=== PATIENT | female | born 1995 | race Caucasian/White ===

== ENCOUNTER 2024-08-31 13:23 | Outpatient (CLI) | payer MEDICAID, SELFPAY ==
[2024-08-31] VITALS (12 sets, daily range): BP systolic 130–159; BP diastolic 69–96; PULSE 100–112; BMI 45.9
[2024-08-31] MEDS: LABETALOL 100 MG TABLET 200 MG PO (14:13)
--- NOTE | 2024-08-31 14:46 | PC.CC ---
1446-Spoke to Bree at [facility] about transfer for patient, phone call transferred to OB charge nurse Patricai for further patient clinicals, charge nurse then took over transfer, HS available to assist. 1515- spoke to charge nurse Patricia and asked if Dr. Alegria wanted a stroke alert initiated and this rn heard Dr. Isabel say no because the patient was being transferred and we do not have neurology or MRI and the patient was already being transferred
--- NOTE | 2024-08-31 14:47 | ESHP_ITS ---
Documentation for date of: 08/31/24 OB Labor/Induct. HPI History of Present Illness : 5 Term pregnancies: 4 pregnancies: 0 Living children: 4 History of Abortions: Spontaneous and Elective: 0 History of sections: No History of : No Gestational Age (weeks): 32 Gestational Age (days): 4 History of present illness: 29-year-old G5, P4 who comes at 32 weeks and 4 days after having an episode of right arm paresthesia, slurred speech and blurry vision for about 10 minutes at 1130 this morning which self resolved. Patient denies family history of similar episodes Her is remarkable for di/di twin with FGR one of the fetuses. Morbid obesity and chronic hypertension on aspirin, gestational diabetes A2 on insulin. Patient states having been induced for all of her pregnancies at 37 weeks due to gestational hypertension, all deliveries were Currently she denies any of the symptoms mentioned above. She also denies headache, blurry vision, right upper quadrant or epigastric pain Review of Systems Allergic/Immunologic Comments: Denies Past Medical History Surgical History SURGICAL: Negative Section Past Medical History Comments PMH COMMENT: GDMA2. Chronic hypertension not on meds. Morbid obesity Meds Home Medications and Allergies Home Medications ?Medication ?Instructions ?Recorded ?Confirmed ?Type labetalol 100 mg tablet 100 mg PO BID 03/18/19 11/18/22 History vitamins-iron fumarate 27 1 tab PO QDAY 03/18/19 11/18/22 History mg iron-folic acid 0.8 mg tablet ( Vitamin) Allergies Allergy/AdvReac Type Severity Reaction Status Date / Time No Known Allergies Allergy Unknown Verified 11/18/22 19:37 OB Exam Physical Exam Vital signs: Pulse BP 102 H 143/82 H 08/31/24 14:25 08/31/24 14:25 Detailed Labor and Delivery Exam Contraction frequency (min): 0 OB Results Impressions Impression: 29-year-old G5, P4 at 32 weeks and 4 days. Di/di twin with FGR Morbid obesity and chronic hypertension on aspirin GDMA2 on insulin Suspected TIA, currently denies neurologic symptoms OB Assessment & Plan Additional Plan Additional Plan Comment: Plan was initially to have neurological evaluation along with brain MRI and preeclampsia evaluation as well. However neurology and MRI are not available today to perform evaluation. Given these findings [facility] on-call was contacted and agree on transferring the patient for neurological evaluation. Will start magnesium sulfate for seizure prophylaxis along with Celestone for lung maturation Preeclampsia labs still pending
[2024-08-31] MEDS: MAGNESIUM SULF 20 GM IVPB 20 GM/500 ML BAG IV ×2 (14:48→15:22)
[2024-08-31] MEDS: Magnesium Sulfate 4 GM Ivpb 4 GM/50 ML BAG IV (14:48)
[2024-08-31 14:54] LABS: Collection Type, Urine Clean Catch
[2024-08-31 15:01] LABS: Bacteria,Urine Rare; Basophils % (Auto) 0 % (0-2.5); Bilirubin,Urine Negative (Negative); Blood,Urine Negative (Negative); Clarity,Urine Clear (Clear/Hazy); Color,Urine Yellow (Lt Yel-Yel); Eosinophils # (Auto) 0.1 Thou/mm3 (0.0-0.5); Eosinophils % (Auto) 1 % (0-10); Glucose, Urine Negative (Negative); Hematocrit 33.9 % (36.0-46.0); Hemoglobin 11.6 g/dL (12.0-16.0); Immature Granulocytes % (Auto) 2 % (0-0); Ketones,Urine Trace (Negative); Leukocyte Esterase,Urine Positive (Negative); Lymphocytes # (Auto) 1.9 Thou/mm3 (1.0-4.8); Lymphocytes % (Auto) 15 % (10-50); Mean Corpuscular HGB Conc 34.2 g/dl (31.0-37.0); Mean Corpuscular Hemoglobin 27.7 pg (25.0-35.0); Mean Corpuscular Volume 81 fL (80-100); Monocytes # (Auto) 0.8 Thou/mm3 (0.0-0.8); Monocytes % (Auto) 6 % (0-12); Neutrophils # (Auto) 9.9 Thou/mm3 (1.8-7.7); Neutrophils % (Auto) 77 % (37-80); Nitrite,Urine Negative (Negative); Nucleated Red Blood Cell % 0 /100 WBC (0); PH,Urine 6.5 (5.0-7.0); Platelet Count 270 Thou/mm3 (140-440); Protein,Urine 1+ (Neg - Trace); RBC,Urine 3 /hpf (0-3); RDW Standard Deviation 43.4 fL (36.4-46.3); Red Blood Count 4.19 Miln/mm3 (4.00-5.20); Specific Gravity,Urine 1.017 (1.001-1.035); Squamous Epithelial Cell,Urine 9 /hpf (0-5); Urobilinogen,Urine Negative mg/dL (0.0-1.0); WBC,Urine 2 /hpf (0-5); White Blood Count 12.9 Thou/mm3 (3.6-11.0)
[2024-08-31] MEDS: BETAMET ACET/BETAMET NA PH (Celestone) 6 MG/ML VIAL 12 MG IM (15:03)
[2024-08-31 15:20] LABS: Fibrinogen 574 mg/dL (175-375); Partial Thromboplastin Time 26.7 Seconds (22.0-36.0); Prothrombin Time 10.8 Seconds (9.0-12.2)
[2024-08-31 15:30] LABS: Alanine Aminotransferase 9 U/L (10-49); Albumin, Serum 4.4 gm/dL (3.5-5.0); Albumin/Globulin Ratio 1.8 (1.2-2.2); Alkaline Phosphatase 106 U/L (46-116); Anion Gap 8 (7-16); Aspartate Amino Transferase < 10 U/L (0-34); BUN/Creatinine Ratio 10 Ratio (12-20); Bilirubin,Total 0.7 mg/dL (0.3-1.2); Blood Urea Nitrogen < 5 mg/dL (9-23); Calcium 9.5 mg/dL (8.3-10.6); Calcium (Corrected) 9.5 mg/dL (8.5-10.1); Carbon Dioxide 20.9 mMol/L (20.0-31.0); Chloride 106 mMol/L (98-107); Creatinine (Component) 0.5 mg/dL (0.6-1.3); Estimated Creatinine Clearance 246.3 mL/min (>60); Globulin 2.5 gm/dL (2.3-3.5); Glucose 104 mg/dL (74-106); LDH (Lactate Dehydrogenase) 157 U/L (120-246); Osmolality,Calculated 267 (275-295); Potassium 3.9 mMol/L (3.4-5.1); Sodium 135 mMol/L (136-145); Total Protein 6.9 gm/dL (5.7-8.2); Uric Acid 3.6 mg/dL (3.1-7.8); eGFR > 60 See Note
--- NOTE | 2024-08-31 19:13 | PC.NURSE ---
Called to lab. Spoke with jam about sending drug tox for pt. pt has been transfered but urine is being taken down now for testing. Asking if okay to discharge encounter and urine sample will still be run. per jam, spoke with her manager demand and yes aslong as they received the test drug tox will still be tested.
[2024-08-31 21:30] LABS: Amphetamine/Metham Scrn,Ur OB Negative (Negative); Benzoylecgonine Screen, Ur OB Negative (Negative); Opiate Screen,Urine OB Negative (Negative); THC Screen,Urine OB Negative (Negative)
== END 2024-08-31 17:21 | disposition home or self-care (01) ==
LOC: S4S1 13:24 → S4SX 13:25
PROVIDERS: Referring Provider Obstetrics & Gynecology; Visit Provider Obstetrics & Gynecology
DX: O24.414 Gestational diabetes mellitus in pregnancy, insulin controlled (principal); O16.3 Unspecified maternal hypertension, third trimester; O30.043 Twin pregnancy, dichorionic/diamniotic, third trimester; O99.213 Obesity complicating pregnancy, third trimester; E66.01 Morbid (severe) obesity due to excess calories; Z3A.32 32 weeks gestation of pregnancy
CPT/HCPCS: 36415; 59025; 80053; 80307; 81001; 83615; 83735; 84550; 85025; 85384; 85610; 85730; 96365; 96372; J0702; J3475; A9270

== ENCOUNTER 2024-09-22 14:39 | Outpatient (RCR) | payer MEDICAID, SELFPAY ==
[2024-08-28 15:20] VITALS: BP 132/84; PULSE 98; RESP 16; TEMP 36.8
[2024-09-04 14:49] VITALS: BP 136/73; PULSE 97; RESP 16
[2024-09-08 15:09] VITALS: BP 143/85; PULSE 96; RESP 16; TEMP 36.7
[2024-09-15 14:46] VITALS: BP 132/78; PULSE 97; RESP 16; TEMP 37
[2024-09-18 14:52] VITALS: BP 140/80; PULSE 86; RESP 16
[2024-09-22 15:43] VITALS: BP 136/77; PULSE 84; RESP 16
== END 2024-09-22 23:59 | disposition home or self-care (01) ==
LOC: S4S1 14:39
PROVIDERS: Referring Provider Specialist; Visit Provider Specialist
DX: O24.419 Gestational diabetes mellitus in pregnancy, unspecified control (principal); O36.5932 Maternal care for other known or suspected poor fetal growth, third trimester, fetus 2; O30.043 Twin pregnancy, dichorionic/diamniotic, third trimester; O10.913 Unspecified pre-existing hypertension complicating pregnancy, third trimester; Z3A.35 35 weeks gestation of pregnancy
CPT/HCPCS: 59025; 80053; 85025; 85610; 85730; 86780; 86850; 86900; 86901

== ENCOUNTER 2024-09-24 05:21 | Inpatient (IN) | payer MEDICAID, SELFPAY ==
--- NOTE | 2024-09-20 09:16 | ESHP_ITS ---
RE: MELL LOWE : 1995 DATE OF ADMISSION: 09/24/2024 HISTORY OF PRESENT ILLNESS: This is a 29-year-old gravity 5, para 4-0-0-4 with a due date of 10/22/2024 with intrauterine at 36 weeks' gestation, who presents for primary delivery due to malpresentation, twin gestation with chronic hypertension and superimposed preeclampsia without severe features and well-controlled gestational diabetes mellitus, class A2. She is also multiparous and desires voluntary sterilization. She has a dichorionic diamniotic twin gestation and has had serial ultrasounds throughout her with maternal medicine. The most recent ultrasound shows that both babies have concordant growth with twin A at the 62nd percentile and twin B at the 22nd percentile. There was a period of time in the where it appeared that twin B was lagging in growth and she was undergoing serial biophysical profiles and uterine artery Dopplers; however, twin B has demonstrated adequate interval growth on the most recent ultrasound on 09/09/2024. The patient was admitted to [facility] on 08/31/2024 for a change in mental status. At the time, she underwent an MRI and an EEG, which were negative. She underwent a 24-hour urine collection, which showed 501 mg of protein over 24 hours. She has had serial PIH blood work, which has been within the normal limits. She reports normal movements. She denies any leaking or bleeding. She denies any headache, change in vision or right upper quadrant pain. She denies any chest pain, palpitations, shortness of breath, or lower extremity pain. ALLERGIES: NO KNOWN DRUG ALLERGIES. MEDICATIONS: 1. Humulin NPH 26 units before breakfast, 16 units at bedtime 2. Humalog 12 units before breakfast, 12 units with dinner 3. multivitamin one p.o. daily 4. Aspirin 162 mg one p.o. daily 5. Ferrous sulfate 325 mg one p.o. b.i.d. 6. Penicillin 500 mg one p.o. q. 6 hours. PAST MEDICAL HISTORY: Group B strep urinary tract infection on 09/17/2024, chronic hypertension, anxiety, depression, iron deficiency anemia, obesity, migraine headaches, GDMA2. PAST SURGICAL HISTORY: Tonsillectomy. FAMILY HISTORY: Mother has depression, anxiety, hypertension, heart disease. Maternal grandmother has migraine headaches, depression, anxiety, diabetes, hypertension. OBSTETRIC HISTORY: Four previous full-term normal vaginal deliveries. REVIEW OF SYSTEMS: As above. PHYSICAL EXAMINATION: VITAL SIGNS: Blood pressure 143/97, heart rate 88, respirations 18, temperature 98.6, weight 304 pounds. HEENT: Oropharynx and sclerae are clear. LUNGS: Clear to auscultation bilaterally. HEART: Regular rate and rhythm. ABDOMEN: Gravid with fundus at 46 cm. PELVIC: Deferred. EXTREMITIES: Nontender. SKIN: No gross rashes or lesions NEUROLOGIC: No focal deficits. ASSESSMENT: Intrauterine at 36 weeks; dichorionic diamniotic twin gestation; malpresentation; chronic hypertension with superimposed preeclampsia without severe features; gestational diabetes mellitus, class A2, well controlled; multiparity; desires voluntary sterilization; PLAN: delivery and bilateral tubal ligation. Informed consent was obtained. The patient made aware of the risks, complications, alternatives, and benefits of the proposed procedure and she agrees. DT: 07:18:51 TT: 09:00:00 Ref: [id number] - TID: [id number] MTDCharlie
[2024-09-22 16:46] LABS: Basophils % (Auto) 0 % (0-2.5); Eosinophils # (Auto) 0.1 Thou/mm3 (0.0-0.5); Eosinophils % (Auto) 1 % (0-10); Hematocrit 33.2 % (36.0-46.0); Hemoglobin 10.9 g/dL (12.0-16.0); Immature Granulocytes % (Auto) 1 % (0-0); Immature Granulocytes Auto 0.09 Thou/mm3 (0.00-0.00); Lymphocytes # (Auto) 1.8 Thou/mm3 (1.0-4.8); Lymphocytes % (Auto) 16 % (10-50); Mean Corpuscular HGB Conc 32.8 g/dl (31.0-37.0); Mean Corpuscular Hemoglobin 26.7 pg (25.0-35.0); Mean Corpuscular Volume 81 fL (80-100); Monocytes # (Auto) 0.8 Thou/mm3 (0.0-0.8); Monocytes % (Auto) 7 % (0-12); Neutrophils # (Auto) 8.7 Thou/mm3 (1.8-7.7); Neutrophils % (Auto) 76 % (37-80); Nucleated Red Blood Cell % 0 /100 WBC (0); Platelet Count 261 Thou/mm3 (140-440); RDW Standard Deviation 43.8 fL (36.4-46.3); Red Blood Count 4.09 Miln/mm3 (4.00-5.20); White Blood Count 11.5 Thou/mm3 (3.6-11.0)
[2024-09-22 16:50] LABS: INR 0.9 (0.9-1.3); Partial Thromboplastin Time 25.6 Seconds (22.0-36.0); Prothrombin Time 10.3 Seconds (9.0-12.2)
[2024-09-22 17:12] LABS: Syphilis Nonreactive (Nonreactive)
[2024-09-22 17:16] LABS: Alanine Aminotransferase < 7 U/L (10-49); Alkaline Phosphatase 144 U/L (46-116); Anion Gap 10 (7-16); Aspartate Amino Transferase < 8 U/L (0-34); BUN/Creatinine Ratio 12 Ratio (12-20); Bilirubin,Total 0.5 mg/dL (0.3-1.2); Blood Urea Nitrogen 7 mg/dL (9-23); Calcium 9.6 mg/dL (8.3-10.6); Calcium (Corrected) 9.6 mg/dL (8.5-10.1); Carbon Dioxide 21.1 mMol/L (20.0-31.0); Chloride 106 mMol/L (98-107); Creatinine (Component) 0.6 mg/dL (0.6-1.3); Glucose 101 mg/dL (74-106); Osmolality,Calculated 271 (275-295); Potassium 3.9 mMol/L (3.4-5.1); Sodium 137 mMol/L (136-145); eGFR > 60 See Note
[2024-09-24] VITALS (14 sets, daily range): BP systolic 114–131; BP diastolic 70–83; PULSE 68–79; RESP 16–22; TEMP 36.5–37; O2SAT 94–98; BMI 47.0
[2024-09-24] MEDS: RINGERS LACTATED 1000 ML 1,000 ML 100 ML IV ×2 (06:09→20:20)
[2024-09-24] MEDS: CITRIC ACID/SODIUM CITR 15 ML UDC (BICITRA) 30 ML PO (07:34)
[2024-09-24] MEDS: ceFAZolin/D5W 2 GM IV 2 GM/100 ML BAG IV (07:36)
[2024-09-24] MEDS: FAMOTIDINE INJ 10 MG/ML VIAL 2 ML 20 MG IV (07:36)
[2024-09-24 08:37] LABS: Collection Type, Urine Clean Catch
[2024-09-24 08:48] LABS: Bilirubin,Urine Negative (Negative); Blood,Urine Negative (Negative); Clarity,Urine Clear (Clear/Hazy); Color,Urine Yellow (Lt Yel-Yel); Glucose, Urine Negative (Negative); Ketones,Urine Negative (Negative); Leukocyte Esterase,Urine Negative (Negative); Nitrite,Urine Negative (Negative); PH,Urine 6.5 (5.0-7.0); Protein,Urine 1+ (Neg - Trace); RBC,Urine 2 /hpf (0-3); Specific Gravity,Urine 1.019 (1.001-1.035); Squamous Epithelial Cell,Urine 11 /hpf (0-5); Urobilinogen,Urine Negative mg/dL (0.0-1.0); WBC,Urine 2 /hpf (0-5)
--- NOTE | 2024-09-24 08:59 | ESDS_ITS ---
DS: Providers Provider Date of admission: 09/24/24 05:21 Primary care physician: Chi Crowe MD Admitting Provider: Marcello Jasso MD Attending Provider on Admission: Marcello Jasso MD Attending Provider on DC: Marcello Jasso MD Discharging Provider: Marcello Jasso MD DS: Diagnosis Problem List Completed Was Problem List Reviewed/Reconciled?: Yes Summary/Hosp Course Peripartum Data Procedures: Procedures Operation Date: 09/24/24 07:45 <No data on this case meets the specified criteria> Time Spent with Patient Time attestation: Total time spent providing and/or coordinating discharge services: Exam Vital Signs Temp 97.7 F 09/24/24 05:28 Discharge Plan Plan Patient Disposition: HOME (Self Care) Patient condition on transfer: Stable Prescriptions/Referrals Prescriptions/Med Rec: New ibuprofen 600 mg tablet 600 mg PO Q6H PRN (Reason: pain) Qty: 30 0RF Continued Vitamin 27 mg iron- 0.8 mg Tablet 1 tab PO QDAY Discontinued ferrous sulfate 325 mg (65 mg iron) tablet,delayed release (DR/EC) 325 mg PO BID Qty: 60 0RF insulin NPH and regular human 100 unit/mL (50-50) Suspension 26 ml SUBCUT ACBR insulin NPH and regular human 100 unit/mL (50-50) Suspension 8 ml SUBCUT HS insulin lispro [Humalog U-100 Insulin] 100 unit/mL Solution 12 unit SUBCUT ACBR insulin lispro [Humalog U-100 Insulin] 100 unit/mL Solution 12 unit SUBCUT ONCE PM Referrals: Chi Crowe MD [Primary Care Provider] - Patient/Caregiver Discharge Instructions Discharge Activity: activity as tolerated Other Discharge Activity Instructions:: Follow up office 1 week. Education Materials: C Section Dc Print Language: Slovenian Stand Alone Forms: [facility]ez Award Info., Patient Portal Info Letter Discharge Order Discharge Orders: Discharge (Routine); Ordered 09/26/24 Ordered By: Marcello Jasso Planned Discharge Date 09/26/24
[2024-09-24 09:01] LABS: Partial Thromboplastin Time 26.3 Seconds (22.0-36.0); Prothrombin Time 10.5 Seconds (9.0-12.2)
[2024-09-24 09:23] LABS: Alanine Aminotransferase 8 U/L (10-49); Albumin, Serum 4.1 gm/dL (3.5-5.0); Albumin/Globulin Ratio 1.9 (1.2-2.2); Alkaline Phosphatase 140 U/L (46-116); Anion Gap 11 (7-16); Aspartate Amino Transferase < 8 U/L (0-34); BUN/Creatinine Ratio 15 Ratio (12-20); Bilirubin,Total 0.5 mg/dL (0.3-1.2); Blood Urea Nitrogen 6 mg/dL (9-23); Calcium 9.3 mg/dL (8.3-10.6); Calcium (Corrected) 9.3 mg/dL (8.5-10.1); Carbon Dioxide 19.3 mMol/L (20.0-31.0); Chloride 108 mMol/L (98-107); Creatinine (Component) 0.4 mg/dL (0.6-1.3); Estimated Creatinine Clearance 463.3 mL/min (>60); Globulin 2.2 gm/dL (2.3-3.5); Glucose 115 mg/dL (74-106); Osmolality,Calculated 274 (275-295); Potassium 3.6 mMol/L (3.4-5.1); Sodium 138 mMol/L (136-145); Total Protein 6.3 gm/dL (5.7-8.2); Uric Acid 3.9 mg/dL (3.1-7.8); eGFR > 60 See Note
[2024-09-24 10:12] LABS: Fibrinogen 608 mg/dL (175-375)
[2024-09-24] MEDS: OXYTOCIN in NS 20 units 20 UNIT/1,000 ML BAG 125 UNIT IV (11:36)
[2024-09-24] MEDS: PROMETHAZINE INJ 25 MG in SODIUM CHLORIDE 0.9% 50 ML IV (11:38)
--- NOTE | 2024-09-24 12:28 | ESOP_ITS ---
RE: MELL LOWE : 1995 DATE OF OPERATION: 09/24/2024 PREOPERATIVE DIAGNOSES: 1. Intrauterine at 36 weeks. 2. Dichorionic, diamniotic twin gestation. 3. Preeclampsia without severe features. 4. Gestational diabetes mellitus class A2, well controlled. 5. Multiparity, desires voluntary sterilization. 6. Malpresentation. POSTOPERATIVE DIAGNOSES: 1. Intrauterine at 36 weeks. 2. Dichorionic, diamniotic twin gestation. 3. Preeclampsia without severe features. 4. Gestational diabetes mellitus class A2, well controlled. 5. Multiparity desires voluntary sterilization. 6. Malpresentation. PROCEDURE PERFORMED: A primary classical delivery via Pfannenstiel skin incision and and bilateral salpingectomy. SURGEON: Marcello Jasso DO CLAIM APPROVER: ZAHRA Benitez ANESTHESIA: Spinal. ANESTHESIOLOGIST: David Blanco CRNA ESTIMATED BLOOD LOSS: 600 mL. COMPLICATIONS: None. COUNTS: Correct. PATHOLOGY: 1. Placenta. 2. Bilateral fallopian tubes. FINDINGS: Twin A cathy breech presentation, clear amniotic fluid, Apgars see RN notes. Twin B, footling breech presentation, clear amniotic fluid, Apgars see RN notes, dichorionic diamniotic, placenta removed complete and intact with umbilical cord clamp on twin B. Uterus and ovaries and fallopian tubes grossly within normal limits. DESCRIPTION OF PROCEDURE: After proper informed consent was obtained and the patient made aware of the risks, complications, alternatives, benefits of the proposed procedure, she was taken to the operating room where she underwent induction of spinal anesthesia. She was placed in the dorsal supine position. She was prepped and draped in the usual sterile fashion. A time-out was performed. A Pfannenstiel skin incision was made with the scalpel, carried through to the underlying layer of fascia with the Bovie. The fascia was nicked to the midline. The incision extended bilaterally with the Bovie. The inferior aspect of the fascial incision was grasped with Ramos clamps and elevated. The underlying rectus muscle was dissected off with the Bovie. The rectus muscles were at the midline. The perineum identified between 2 Soto clamps and entered sharply with the Metzenbaum scissors. The incision was extended superiorly and inferiorly. The bladder blade was then inserted. The classical midline vertical incision was made in the lower uterine segment. The amniotic sac for twin A was ruptured with the pickups with teeth. The cathy breech presentation presented to the incision and the baby was gently guided through the incision atraumatically. The anterior and posterior shoulder delivered and the head kept in the flexed position. Delayed cord clamping was performed for a total of 30 to 60 seconds. The cord was clamped. The infant sent off to waiting pediatric staff. The cord was held with a Agueda clamp. Attention was then turned to the amniotic sac for twin B, which was ruptured with the pickups with teeth. The footling breech presented to the incision. The hips were guided through gently as well as the anterior and posterior arms delivered and the head kept in the flexed position. Baby B delivered atraumatically. The mouth and nose suctioned with the bulb suction. Delayed cord clamping was performed. The umbilical cord was clamped and cord blood was held with the Ramos. Cord blood for baby B was collected and then cord blood for baby A was collected. An umbilical cord clamp was placed on the umbilical cord for baby B. The placenta was then removed manually. The uterus was exteriorized and included all clots and debris and the uterus incision was repaired with #1-0 chromic suture in a running locking fashion. A second layer of same suture was used to imbricate the first layer and obtained excellent hemostasis. Attention was then turned to the right fallopian tube, which was grabbed with the NCLX 1 large jaw and Tia clamp and the right salpingectomy was performed. Attention was then turned to the left fallopian tube, which was grabbed with the Acosta clamp and using the NCLX 1 large jaw, the left salpingectomy was performed. Hemostasis was achieved with both the uterine incision and the adnexal incisions. The uterus was returned to the abdomen. The gutters were cleared off clots and debris. Both adnexa were re-visualized and found to be hemostatic. There was no bleeding noted and the peritoneum was closed with 0 chromic catgut suture in running fashion. The muscle was closed with a chromic catgut suture in running fashion. The fascia was closed with #0 Vicryl beginning at each angle and ending center in running fashion. Subcutaneous tissue was irrigated with normal saline solution. The skin was closed with #4-0 Monocryl. A Dermabond Prineo dressing was applied. A sterile pressure dressing was applied. She tolerated the procedure well. Counts were correct. I discussed with the patient the nature of her condition, intraoperative findings, expectation for recovery. All questions were answered. DT: 08:54:41 TT: 12:27:00 Ref: [id number] - TID: [id number] MTDD
[2024-09-24 13:55] LABS: Basophils % (Auto) 0 % (0-2.5); Eosinophils % (Auto) 0 % (0-10); Hematocrit 33.7 % (36.0-46.0); Immature Granulocytes % (Auto) 1 % (0-0); Immature Granulocytes Auto 0.12 Thou/mm3 (0.00-0.00); Lymphocytes # (Auto) 1.1 Thou/mm3 (1.0-4.8); Lymphocytes % (Auto) 7 % (10-50); Mean Corpuscular HGB Conc 32.6 g/dl (31.0-37.0); Mean Corpuscular Hemoglobin 26.9 pg (25.0-35.0); Mean Corpuscular Volume 82 fL (80-100); Monocytes # (Auto) 0.3 Thou/mm3 (0.0-0.8); Monocytes % (Auto) 2 % (0-12); Neutrophils # (Auto) 14.9 Thou/mm3 (1.8-7.7); Neutrophils % (Auto) 90 % (37-80); Nucleated Red Blood Cell % 0 /100 WBC (0); Platelet Count 269 Thou/mm3 (140-440); RDW Standard Deviation 45.4 fL (36.4-46.3); Red Blood Count 4.09 Miln/mm3 (4.00-5.20); White Blood Count 16.5 Thou/mm3 (3.6-11.0)
--- NOTE | 2024-09-24 17:03 | OBDSUM_ITS ---
Data (Multiple) Data Hx Section: No : 5 Para: 4 Term: 4 : 0 Livin Abortions: Spontaneous & Theraputic: 0 Delivery Data A Labor Data ROM Date - Fetus A: 09/24/24 ROM Time - Fetus A: 08:18 Rupture Type - Fetus A: AROM Amniotic Fluid - Fetus A: Clear Delivery Data EDC: 10/22/24 EDC calculated by:: LMP/early US confirmation Labor Onset Stage 1 Date - Fetus A: 09/24/24 Labor Onset Stage 1 Time - Fetus A: 08:18 Labor Onset Stage 2 Date - Fetus A: 09/24/24 Labor Onset Stage 2 Time - Fetus A: 08:18 Delivery Date - Fetus A: 09/24/24 Delivery Time - Fetus A: 08:19 Gestational age (weeks): 36 Gestational age (days): 0 Placenta Delivery Date - Fetus A: 09/24/24 Placenta Delivery Time - Fetus A: 08:21 Delivered by: Marcello Jasso Delivery Nurse: Aaron Grace Other staff at delivery: Baby Care/[place] Machine Operator Other staff at delivery: Signal Worker Other staff at delivery: Baby Care/[place] Machine Operator Other staff at delivery: Traffic Director Other staff at delivery: Shirlene Shetty Other staff at delivery: Rosie Eduardo Other staff at delivery: olesya Other staff at delivery: heron Delivery Method Delivery - Fetus A: Delivery Type - Fetus A: Primary Presentation - Fetus A: Complete Breech Anesthesia Type Primary Anesthesia - Fetus A: Spinal Placenta Placenta Delivery - Fetus A: Manual Placenta Cultures Obtained - Fetus A: No Placenta Sent for Examination - Fetus A: Yes Cord Sample - Fetus A: Cord Blood Obtained EBL Estimated blood loss (ml): 600 Additional Procedures Bilateral salpingectomy Complications Complications: None Data A Data Gender - Fetus A: Male Weight Grams - Fetus A: 3160 1 Minute Total - Fetus A: 6 5 Minute Total - Fetus A: 8
--- NOTE | 2024-09-24 17:04 | OBDSUM_ITS ---
Data (Multiple) Data Hx Section: No : 5 Para: 4 Term: 4 : 0 Livin Abortions: Spontaneous & Theraputic: 0 Delivery Data B Labor Data ROM Date - Fetus B: 09/24/24 ROM Time - Fetus B: 08:19 Rupture Type - Fetus B: AROM Amniotic Fluid - Fetus B: Clear Delivery Data EDC: 10/22/24 EDC calculated by:: LMP/early US confirmation Gestational age (weeks): 36 Gestational age (days): 0 Labor Onset Stage 1 Date - Fetus B: 09/24/24 Labor Onset Stage 1 Time - Fetus B: 08:18 Labor Onset Stage 2 Date - Fetus B: 09/24/24 Labor Onset Stage 2 Time - Fetus B: 08:18 Delivery Date - Fetus B: 09/24/24 Delivery Time - Fetus B: 08:20 Placenta Delivery Date - Fetus B: 09/24/24 Placenta Delivery Time - Fetus B: 08:21 Delivered by: Marcello Jasso Delivery nurse: Aaron Grace Other staff at delivery: Baby Care/Dessert Cup Machine Feeder Other staff at delivery: Control Systems Technician Other staff at delivery: Baby Care/Dessert Cup Machine Feeder Other staff at delivery: Ict Security Specialist Other staff at delivery: Shirlene Shetty Other staff at delivery: Rosie Eduardo Other staff at delivery: olesya Other staff at delivery: heron Delivery Method Delivery - Fetus B: Delivery Type - Fetus B: Primary Presentation - Fetus B: Footling Breech Anesthesia Type Primary Anesthesia - Fetus B: Spinal Placenta Placenta Delivery - Fetus B: Manual Placenta Cultures Obtained - Fetus B: No Placenta Sent for Examination - Fetus B: Yes Cord Sample - Fetus B: Cord Blood Obtained EBL Estimated blood loss (ml): 600 Additional Procedures Bilateral salpinectomy Complications Complications: None Data B [place] Data Gender - Fetus B: Female Weight Grams - Fetus B: 2570 1 Minute Total - Fetus B: 9 5 Minute Total - Fetus B: 9
[2024-09-24] MEDS: KETOROLAC INJ 30 MG/ML VIAL IVP (20:21)
[2024-09-25 01:10] VITALS: BP 114/71; PULSE 74; RESP 19; TEMP 36.6; O2SAT 97
[2024-09-25] MEDS: HYDROcodone/APAP 5/325 TABLET 1 TAB PO (02:56)
[2024-09-25 04:21] VITALS: BP 113/67; PULSE 83; RESP 17; TEMP 36.9; O2SAT 96
--- NOTE | 2024-09-25 07:21 | PC.LAC ---
Mom states has been pumping but not seeing any changes in milk supply. Explained colostrum and what the expectations were for the first few days. Explained that hand massage can encourage more milk as it duplicates what baby would be doing. Stated that pumping for stimulation will increase milk supply. Mom stated that babies should be coming back to room today and would like help with tandem feeding. Will work with mom when babies get out of NICU.
--- NOTE | 2024-09-25 07:27 | ESPR_ITS ---
RE: MELL LOWE : 1995 DATE OF SERVICE: 09/25/2024 SUBJECTIVE: Postoperative day #1, the patient denies any problem or complaint. She is voiding. She is ambulating. She is tolerating diet. She is passing flatus. She denies any excessive vaginal bleeding. She denies any dizziness or lightheadedness. She denies any chest pain, palpitations, shortness of breath or lower extremity pain. She denies any headache, change in vision or right upper quadrant pain. She denies any depression or anxiety. OBJECTIVE: Vital Signs: Blood pressure 113/67, heart rate 83, respirations 17, temperature 98.4, pulse oximetry is 96% on room air. Lungs: Clear to auscultation bilaterally. Heart: Regular rate and rhythm. Abdomen: Dressing dry. Fundus is firm. Extremities: Nontender. LABORATORY DATA: Hemoglobin pre-delivery is 10.9. Post delivery is 11.0. ASSESSMENT: Postop day #1 status post delivery and bilateral tubal ligation. PLAN: Remove dressing. Discontinue IV. Encourage ambulation, support, possible discharge home tomorrow. DT: 06:31:42 TT: 07:26:00 Ref: [id number] - TID: [id number]
[2024-09-25 08:00] VITALS: BP 111/74; PULSE 84; RESP 16; TEMP 36.6; O2SAT 96
[2024-09-25] MEDS: IBUPROFEN TAB 400 MG TABLET 800 MG PO ×3 (08:03→23:52)
[2024-09-25] MEDS: ENOXAPARIN SOD INJ 40 MG/0.4 ML SYRINGE SC (08:04)
[2024-09-25] MEDS: SIMETHICONE 80 MG CHEW PO ×2 (08:38→15:49)
[2024-09-25] MEDS: Milk Of Magnesia Susp 30 ML UDC PO (08:38)
[2024-09-25] MEDS: HYDROcodone/APAP 5/325 TABLET 2 TAB PO ×2 (11:56→18:40)
[2024-09-25 16:00] VITALS: BP 113/72; PULSE 81; RESP 18; TEMP 36.6; O2SAT 96
[2024-09-25 20:00] VITALS: BP 134/81; PULSE 78; RESP 19; TEMP 36.7; O2SAT 97
[2024-09-26] MEDS: HYDROcodone/APAP 5/325 TABLET 2 TAB PO (01:30)
[2024-09-26] MEDS: SIMETHICONE 80 MG CHEW PO (03:01)
[2024-09-26 03:54] VITALS: BP 124/80; PULSE 84; RESP 18; TEMP 36.9; O2SAT 97
[2024-09-26 07:32] VITALS: BP 119/79; PULSE 79; RESP 16; TEMP 36.8; O2SAT 97
[2024-09-26] MEDS: IBUPROFEN TAB 400 MG TABLET 800 MG PO (08:11)
[2024-09-26] MEDS: ENOXAPARIN SOD INJ 40 MG/0.4 ML SYRINGE SC (08:11)
[2024-09-26 11:55] VITALS: BP 138/90; PULSE 85; RESP 20; TEMP 36.8; O2SAT 98
[2024-09-26] MEDS: ACETAMINOPHEN 325 MG TABLET 650 MG PO (12:14)
--- NOTE | 2024-09-26 20:00 | ESPR_ITS ---
RE: MELL LOWE : 1995 DATE OF SERVICE: 09/26/2024 SUBJECTIVE: Postop day #2, patient denies any problem or complaint. She is voiding. She is ambulating. She is tolerating diet. She is passing flatus. She denies any excessive vaginal bleeding. She denies any dizziness or lightheadedness. She denies any chest pain, palpitations, shortness of breath or lower extremity pain. OBJECTIVE: Vital Signs: Blood pressure is 138/90, heart rate 85, respirations 20, and temperature is 98.2. Lungs: Clear to auscultation bilaterally. Heart: Regular rate and rhythm. Abdomen: Incision is clear and intact. Fundus is firm. Extremities: Nontender. ASSESSMENT: Postoperative day #2, status post delivery and bilateral salpingectomy. PLAN: Discharge home. Discharge instructions given. Follow up in the office in 1 week. DT: 18:49:09 TT: 19:58:00 Ref: [id number] - TID: [id number]
== END 2024-09-26 15:00 | disposition home or self-care (01) | DRG 539 ==
LOC: S4SX 07:26 → S4NX 08:06
PROVIDERS: Admitting Provider Specialist; PCP Family Medicine; Visit Provider Specialist
PROC: 0UL70ZZ Occlusion of Bilateral Fallopian Tubes, Open Approach (ICD-10-PCS; CPT 59514; principal; 2024-09-24 07:30)
DX: O30.043 Twin pregnancy, dichorionic/diamniotic, third trimester (principal); O14.04 Mild to moderate pre-eclampsia, complicating childbirth; O32.1XX1 Maternal care for breech presentation, fetus 1; O32.8XX2 Maternal care for other malpresentation of fetus, fetus 2; O24.424 Gestational diabetes mellitus in childbirth, insulin controlled; Z37.2 Twins, both liveborn; Z3A.36 36 weeks gestation of pregnancy; Z30.2 Encounter for sterilization
CPT/HCPCS: 36415; 80053; 81001; 84550; 85025; 85384; 85610; 85730; 86780; 86850; 86900; 86901; 86923; A4649; J0689; J1100; J1650; J1885; J2250; J2274; J2371; J2405; J2550; J2590; J3490; J7120; A9270; J0690; J2270